=== PATIENT | male | born 1955 | race Caucasian/White ===

== ENCOUNTER → 2020-02-15 | Outpatient (CLI) | payer OTHER ==
[~2020-02-15] MED LIST: IOHEXOL 350 MG/ML 100ML INFUS..BTL IV ONE
== END | disposition home or self-care (01) ==
LOC: OIH 07:45
PROVIDERS: ATTEND Internal Medicine Gastroenterology
DX: K63.4 Enteroptosis (principal); R63.4 Abnormal weight loss; A15.9 Respiratory tuberculosis unspecified
CPT/HCPCS: 74177; Q9967